=== PATIENT | female | born 1945 | race Caucasian/White ===

== ENCOUNTER 2022-11-16 19:42 | Observation (INO) ==
[2022-11-16] MEDS ORDERED: APRESOLINE INJ 20 MG VIAL ONE (19:50)
--- NOTE | 2022-11-16 19:56 | EKG ---
Test Reason : CHEST PAIN Blood Pressure : */* mmHG Vent. Rate : 86 BPM Atrial Rate : 86 BPM P-R Int : 146 ms QRS Dur : 76 ms QT Int : 346 ms P-R-T Axes : 58 5 31 degrees QTc Int : 414 ms Normal sinus rhythm Nonspecific ST and T wave abnormality Abnormal ECG No previous ECGs available Confirmed by Kyle Saeed ([id number]) on 11/17/2022 8:16:06 AM Referred By: Confirmed By: Kyle Saeed
[2022-11-16] MEDS ORDERED: APRESOLINE INJ 20 MG VIAL IVP ONE ×2 (20:16→20:40)
[2022-11-16 20:27] LABS: BASOPHILS % (AUTO) 0.5 % (0.2-1.0); EOSINOPHILS # (AUTO) 0.3 x10^3/uL (0.0-0.2); EOSINOPHILS % (AUTO) 3.2 % (0.9-2.9); HEMATOCRIT 37.1 % (36.0-47.0); LYMPHOCYTES # (AUTO) 3.3 X10^3/uL (1.3-2.9); LYMPHOCYTES % (AUTO) 39.3 % (21.0-51.0); MEAN CORPUSCULAR HEMOGLOBIN 31.8 pg (27.0-34.0); MEAN CORPUSCULAR HGB CONC 34.9 g/dL (33.0-35.0); MEAN CORPUSCULAR VOLUME 90.9 fL (80.0-100.0); MEAN PLATELET VOLUME 10.1 fL (7.4-11.0); MONOCYTES # (AUTO) 0.8 x10^3/uL (0.3-0.8); MONOCYTES % (AUTO) 9.6 % (0.0-13.0); NEUTROPHILS % (AUTO) 47.4 % (42.0-75.0); RED BLOOD COUNT 4.08 X10^6/uL (3.5-5.4); RED CELL DISTRIBUTION WIDTH 12.8 % (11.6-16.5); WHITE BLOOD COUNT 8.4 X10^3/uL (3.6-10.0)
--- NOTE | 2022-11-16 20:32 | DR.CP ---
HPI Time Seen Time Seen by Provider: 11/16/22 20:05 PCP Primary Care Physician: Casper Black Complaint Chief Complaint Doctor Comments: PATIENT STATES THAT SHE HAD A RAPID HEART RATE AND ELEVATED BLOOD PRESURE,HE SON-N-LAW DR ARAMBULA CALLED THE ER AND STATED THAT SHE WOULD BE COMING TO ER FOR FURTHER EVALUATION AND WOULD LIKE FOR US TO CALL HIM WHEN WORKUP WAS COMPLETE. WHEN PATIENT ARRIVED HER BLOOD PRESSURE WAS 241/110. 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-19 Coronavirus risk:travel/contact w/high risk person: No Has patient experienced Coronavirus symptoms: No Source History Provided: Patient Mode of Arrival Mode of Arrival: Ambulatory Timing Onset of Chief Complaint: 11/16/22 PMH PMH Past Medical History: Yes Past Medical History: Hypertension Past Medical History Comment: one other episode of A-fib in the past Past Surgical History: No Family History History of Family Medical Conditions: Yes Family Medical History: [place] and Coronary Artery Disease Family Medical History Comment: Aortic Stenosis Social History Does patient currently use any type of tobacco product: No Have you used tobacco products in the last 12 months: No Type of Tobacco Use: None Alcohol Use: None Do you use any recreational Drugs:: No Lives With: Family Lives Where: Home Travel Risk Coronavirus risk:travel/contact w/high risk person: No Has patient experienced Coronavirus symptoms: No Infectious screening Have you traveled outside the country in the last 6 months?: No Isolation: Standard ROS Review of Systems Constitutional: Other (PALPATATIONS AND ELEVATED BP) Eyes: No Symptoms Reported ENTM: No Symptoms Reported Respiratoy: No Symptoms Reported Cardiovascular: Palpitations Gastrointestinal/Abdominal: No Symptoms Reported Genitourinary: No Symptoms Reported Neurological: No Symptoms Reported Musculoskeletal: No Symptoms Reported Integumentary: No Symptoms Reported Hematologic/Lymphatic: No Symptoms Reported Endocrine: No Symptoms Reported Psychiatric: No Symptoms Reported PE Vitals Vitals: Temperature 98.2 F Pulse Rate 107 Respiratory Rate 24 Blood Pressure 144/75 O2 Sat by Pulse Oximetry 100 General Limitations: No Limitations General Appearance: In Distress (MILD DISTRESS) Head Head Exam: Normal Inspection, Atraumatic and Normocephalic Eyes Eye exam: Normal Appearance, PERRL and EOMI ENT ENT Exam: Normal Exam, Normal Oropharynx and Normal External Ear Exam Chest Chest Inspection: Normal Inspection and Symmetric Chest Wall Rise Respiratory Respiratory Exam: Normal Lung Sounds Bilat Respiratory Exam: Bilateral: Clear to Auscultation Cardiovascular Cardiovascular Exam: Regular Rate and Normal Rhythm Pulse: Normal Abdominal Exam Abdominal Exam: Normal Inspection and Normal Bowel Sounds Extremities Extremities Exam: Normal Inspection and Full ROM Back Back Exam: Normal Inspection and Full ROM Neurologic Neurological Exam: Alert, Oriented X3 and CN II-XII Intact Psychiatric Psychiatric Exam: Normal Affect and Normal Mood Skin Skin Exam: Warm, Dry and Intact MDM Differential Diagnosis Differential Diagnosis: Angina (AFIB,PALPATATIONS,MALIGNANT HTN) and Pulmonary Embolus COURSE Treatment Treatment: PATIENT WASORIGINALLY GIVEN HYDRALAZINE 10MG IV FOR ELEVATED BP AND IT DECREASED FROM 221/110 TO 188/90. INITIAL EKG WAS NSR WITH RATE OF 87. THE PATIENT'S BLOOD PRESSURE INCRESED BACK UP TO 199/105 AND THE HR WENT UP TO 120, SHE WAS GIVEN 10 MORE MG OF HYDRALAZINE AND BP DECREASED BACK TO 185/90 AND HR INCREASED TO 134. HE PC AND SON-N-LAW DR BLACK PRESENTED TO ER AND STATED THAT HE WANTED TO ADMITTHE PATIENT TO HIS SERVICE AND INITIALLY WANTED TO GIVE LOPRESSOR 10MG IV BUT I TOLD HIM THAT I HAD ALREADY ORDERED CARDIZEM 10MG FOR THE PATIENT AND STATED THAT HE WAS GOOD WITH THAT DRUG BEING GIVEN. THE PATIENT HAD AN ELEVATED D-DIMER AND WAS PUT IN TO GET CTA OF CHEST. SUSHILA GOT THE CTA AND IT WAS NEGATIVE FOR PE. PATIENT WAS REFERRED TO OBSERVATION FOR MALIGNANT HTN AND ELEVATED D-DIMER AND SINUS TACHYCARDIA. ROR Labs Reviewed Result Diagrams: 11/16/22 19:54 11/16/22 19:54 Laboratory: WBC 8.4 X10^3/uL (3.6-10.0) 11/16/22 19:54 RBC 4.08 X10^6/uL (3.5-5.4) 11/16/22 19:54 Hgb 13.0 g/dL (12.0-16.0) 11/16/22 19:54 Hct 37.1 % (36.0-47.0) 11/16/22 19:54 MCV 90.9 fL (80.0-100.0) 11/16/22 19:54 MCH 31.8 pg (27.0-34.0) 11/16/22 19:54 MCHC 34.9 g/dL (33.0-35.0) 11/16/22 19:54 RDW 12.8 % (11.6-16.5) 11/16/22 19:54 Plt Count 234 X10^3/uL (150.0-450.0) 11/16/22 19:54 MPV 10.1 fL (7.4-11.0) 11/16/22 19:54 Neut % (Auto) 47.4 % (42.0-75.0) 11/16/22 19:54 Lymph % (Auto) 39.3 % (21.0-51.0) 11/16/22 19:54 Robertson % (Auto) 9.6 % (0.0-13.0) 11/16/22 19:54 Eos % (Auto) 3.2 % (0.9-2.9) H 11/16/22 19:54 Baso % (Auto) 0.5 % (0.2-1.0) 11/16/22 19:54 Neut # (Auto) 4.0 x10^3/uL (2.2-4.8) 11/16/22 19:54 Lymph # (Auto) 3.3 X10^3/uL (1.3-2.9) H 11/16/22 19:54 Robertson # (Auto) 0.8 x10^3/uL (0.3-0.8) 11/16/22 19:54 Eos # (Auto) 0.3 x10^3/uL (0.0-0.2) H 11/16/22 19:54 Baso # (Auto) 0.0 X10^3/uL (0.0-0.1) 11/16/22 19:54 Absolute Nucleated RBC 0.1 /100WBC 11/16/22 19:54 D-Dimer 1.35 ug/ml (0.0-0.57) H 11/16/22 19:54 Sodium 139 mmol/L (136-145) 11/16/22 19:54 Corrected Sodium 139 mmol/L (136-145) 11/16/22 19:54 Potassium 3.5 mmol/L (3.5-5.1) 11/16/22 19:54 Chloride 103 mmol/L (98-107) 11/16/22 19:54 Carbon Dioxide 25.9 mmol/L (21-32) 11/16/22 19:54 BUN 23 mg/dL (7-18) H 11/16/22 19:54 Creatinine 1.00 mg/dL (0.55-1.02) 11/16/22 19:54 Est GFR (MDRD) Af Amer > 60 (>60) 11/16/22 19:54 Est GFR (MDRD) Non-Af 58 (>60) L 11/16/22 19:54 Glucose 114 mg/dL (65-99) H 11/16/22 19:54 Calcium 9.6 mg/dL (8.5-10.1) 11/16/22 19:54 Corrected Calcium TNP 11/16/22 19:54 Total Bilirubin 0.20 mg/dL (0.2-1.0) 11/16/22 19:54 AST 17 Units/L (15-37) 11/16/22 19:54 ALT 21 Units/L (12-78) 11/16/22 19:54 Alkaline Phosphatase 50 Units/L (46-116) 11/16/22 19:54 Creatine Kinase 76 Units/L (26-192) 11/16/22 19:54 Troponin I High Sens 4.7 ng/L (4.0-60.0) 11/16/22 19:54 Total Protein 7.9 g/dL (6.4-8.2) 11/16/22 19:54 Albumin 4.3 g/dL (3.4-5.0) 11/16/22 19:54 Globulin 3.6 g/dL (2.5-4.5) 11/16/22 19:54 Albumin/Globulin Ratio 1.2 Ratio (1.1-2.1) 11/16/22 19:54 Specimen Type Clean catch urine 11/16/22 20:25 Urine Color Straw (YELLOW) 11/16/22 20:25 Urine Appearance Clear (CLEAR) 11/16/22 20:25 Urine pH 7.0 (5.0 - 8.0) 11/16/22 20:25 Ur Specific [place] 1.015 (1.000-1.030) 11/16/22 20:25 Urine Protein Negative (NEGATIVE) 11/16/22 20:25 Urine Glucose (UA) Negative (NEGATIVE) 11/16/22 20:25 Urine Ketones Negative (NEGATIVE) 11/16/22 20:25 Urine Blood Negative (NEGATIVE) 11/16/22 20:25 Urine Nitrite Negative (NEGATIVE) 11/16/22 20:25 Urine Bilirubin Negative (NEGATIVE) 11/16/22 20:25 Urine Urobilinogen Normal (NORMAL) 11/16/22 20:25 Ur Leukocyte Esterase 1+ (NEGATIVE) 11/16/22 20:25 Urine RBC None seen /HPF (0-3) 11/16/22 20:25 Urine WBC 0-2 /HPF (0-5) 11/16/22 20:25 Ur Squamous Epith Cells Rare /HPF (NEGATIVE) 11/16/22 20:25 Urine Bacteria Negative /HPF (NEGATIVE) 11/16/22 20:25 Ur Culture Indicated? No/not indicated 11/16/22 20:25 XRAY XRAY Interpreted by: Self (NEGATIVE FOR INFILTRATE OR OTHER INTRATHORACIC ABNORMALITY.) Opioid Opioid Risk Tool Age (Anthony box if 16-45): No Total: 0 Total Score Risk Category: Low Risk Copyright: Yonas SIMONS predicting aberrant behaviors Discharge Plan Diagnosis Discharge Problem: Malignant hypertension, Sinus tachycardia, D-dimer, elevated Discharge Plan Patient Disposition: 09 ADMITTED INPATIENT Condition: Stable Orders to Discharge Patient Discharge Orders: Transfer (Routine); Ordered 11/16/22 Ordered By: Isrrael Arteaga
[2022-11-16 20:37] LABS: ALANINE AMINOTRANSFERASE 21 Units/L (12-78); ALBUMIN 4.3 g/dL (3.4-5.0); ALKALINE PHOSPHATASE 50 Units/L (46-116); ASPARTATE AMINO TRANSFERASE 17 Units/L (15-37); BLOOD UREA NITROGEN 23 mg/dL (7-18); CALCIUM 9.6 mg/dL (8.5-10.1); CARBON DIOXIDE 25.9 mmol/L (21-32); CHLORIDE 103 mmol/L (98-107); COR NA(FOR HYPERGLY) 139 mmol/L (136-145); CREATINE KINASE 76 Units/L (26-192); SODIUM 139 mmol/L (136-145); TOTAL PROTEIN 7.9 g/dL (6.4-8.2); eGFR NON BLACK RACES 58 (>60)
[2022-11-16 20:41] LABS: BILIRUBIN,URINE NEGATIVE (NEGATIVE); BLOOD/HEMOGLOBIN,URINE NEGATIVE (NEGATIVE); GLUCOSE, URINE NEGATIVE (NEGATIVE); KETONES,URINE NEGATIVE (NEGATIVE); LEUKOCYTE ESTERASE ,URINE 1+ (NEGATIVE); NITRITES,URINE NEGATIVE (NEGATIVE); PROTEIN,URINE NEGATIVE (NEGATIVE); UROBILINOGEN,URINE NORMAL (NORMAL)
[2022-11-16 20:49] LABS: APPEARANCE,URINE CLEAR (CLEAR); BACTERIA,URINE NEGATIVE /HPF (NEGATIVE); COLOR,URINE STRAW (YELLOW); RBC,URINE NONE SEEN /HPF (0-3); SQUAMOUS EPITHELIAL CELL,UR RARE /HPF (NEGATIVE)
[2022-11-16] MEDS ORDERED: NS 100 ML IV 100 ML ONE (21:06)
--- NOTE | 2022-11-16 21:08 | EKG ---
Test Reason : RYTHEM CHANGE Blood Pressure : */* mmHG Vent. Rate : 124 BPM Atrial Rate : 124 BPM P-R Int : 142 ms QRS Dur : 76 ms QT Int : 316 ms P-R-T Axes : 53 -11 40 degrees QTc Int : 453 ms Sinus tachycardia Nonspecific ST abnormality Abnormal ECG When compared with ECG of 16-NOV-2022 19:54, (Unconfirmed) No significant change was found Confirmed by Kyle Saeed ([id number]) on 11/17/2022 8:16:00 AM Referred By: Confirmed By: Kyle Saeed
[2022-11-16] MEDS ORDERED: NORMODYNE INJ 20 MG VIAL ONE (21:12)
[2022-11-16] MEDS ORDERED: CARDIZEM INJ 50 MG VIAL IVP ONE (21:13)
[2022-11-16] MEDS ORDERED: CARDIZEM INJ 50 MG VIAL ONE (21:15)
[2022-11-16] MEDS ORDERED: NS 1,000 ML IV 1,000 ML IV SCH (23:00)
[2022-11-16] MEDS ORDERED: ATIVAN TAB 1 MG PO PRN (23:40)
[2022-11-16] MEDS ORDERED: CATAPRES TAB 0.1 MG PO PRN (23:40)
[2022-11-17 00:10] VITALS: BMI 22.6
[2022-11-17] MEDS ORDERED: NORCO 5/325 MG TAB PO PRN (00:11)
[2022-11-17 07:46] VITALS: BP 128/62
--- NOTE | 2022-11-19 10:13 | RAD ---
HISTORYc/o feeling she went in A-fib approx 2 hrs ago, states she feels she may be out of it but continues to feel like her heart is beating hard pt denies chest pain and dyspnea elevated heart rateSTUDYCHEST, 1 VIEWCOMPARISONNoneFINDINGSThe lungs are well inflated and grossly clear. Heart size is normal. The trachea is midline. No pneumothorax. Mild interstitial coarsening bilaterally.IMPRESSIONNothing acuteElectronically signed by: Ortiz Lassiter (Nov 16, 2022 23:52:26)
--- NOTE | 2022-11-19 10:17 | CT ---
HISTORYELEVATED DDIMERSTUDYCTA CHESTCOMPARISONNoneTECHNIQUEMultiple axial images of the chest were obtained from the thoracic inlet to the upper abdomen after the administration of IV contrast. 3D reconstructions utilizing axial MIPS imaging was performed and reviewed. Dose reduction techniques including Automated Exposure Control (AEC) and adjustment of mA and kV were utilized.FINDINGSAdequate bolus timing. Negative for pulmonary embolus. Coronary atherosclerotic calcifications in the LAD and circumflex vessels. The thoracic aorta tapers normally with moderate predominantly calcified atherosclerotic plaque.Limited evaluation of the upper abdomen demonstrates no focal inflammatory process. Presumed scarring in the lung apices. Mild hypoventilatory changes in the lungs bilaterally. Dense atherosclerotic calcifications at the origin of the left subclavian artery.IMPRESSIONNegative for pulmonary embolusElectronically signed by: Ortiz Lassiter (Nov 16, 2022 21:58:49)
== END 2022-11-17 09:00 | disposition home or self-care (01) ==
LOC: ER 19:42 → MED/SURG 19:42
PROVIDERS: ADMIT Internal Medicine; ATTEND Internal Medicine
DX: I48.91 Unspecified atrial fibrillation; R79.1 Abnormal coagulation profile; I10 Essential (primary) hypertension; R00.0 Tachycardia, unspecified; R79.89 Other specified abnormal findings of blood chemistry